=== PATIENT | male | born 1940 | race Caucasian/White ===

== ENCOUNTER 2020-06-04 13:04 | Emergency (ER) | payer OTHER, MEDICAID ==
[~2020-06-04] VITALS: Ht 165.1 cm; Wt 49.9 kg
[2020-06-04] MEDS ORDERED: SODIUM CHLORIDE 0.9% 1,000 ML IVB ONE (13:24)
[2020-06-04 14:24] LABS: Basophils # (auto) 0.1 10 ^3/uL (0-0.2); Basophils % (auto) 0.7 % (0.0-2.0); Eosinophils # (auto) 0 10 ^3/uL (0-0.8); Hematocrit 41.5 % (41.0-53.0); Hemoglobin 13.3 g/dL (13.5-17.5); Lymphocytes # (auto) 0.6 10 ^3/uL (0.4-5.4); Lymphocytes % (auto) 4.5 % (10.0-50.0); Mean Corpuscular Hemoglobin 31.7 pg (28.0-32.0); Mean Corpuscular Volume 99.1 fL (80.0-100.0); Monocytes # (auto) 1.2 10 ^3/uL (0-1.3); Monocytes % (auto) 8.9 % (0.0-12.0); Neutrophils # (auto) 11.4 10 ^3/uL (1.6-8.6); Neutrophils % (auto) 85.9 % (37.0-80.0); Platelet Count (auto) 181 10^3/uL (140-450); Red Blood Cells 4.19 10^6/uL (4.5-5.90); White Blood Cell 13.3 10^3/uL (4.4-10.8)
[2020-06-04 14:39] LABS: INR 1.35 (0.9-1.15); Partial Thromboplastin Time 31.2 sec (23.0-31.2)
[2020-06-04 14:44] LABS: Albumin 2.2 g/dL (3.4-5.0)
[2020-06-04 14:46] LABS: BUN/Creatinine Ratio 25.5
[2020-06-04 14:51] LABS: Bilirubin, Total 0.9 mg/dL (0.2-1.0); Total Protein 6.1 g/dL (6.4-8.2)
[2020-06-04 15:48] LABS: Urine Bacteria FEW /hpf (None Seen); Urine Blood Negative /uL (Negative); Urine Mucus FEW (None Seen); Urine Specific Gravity 1.019 (1.001-1.035); Urine WBC 53 /hpf (0 - 3)
[2020-06-04 16:00] VITALS: BP 117/44
== END 2020-06-04 16:41 | disposition home or self-care (01) ==
LOC: ER 13:04 → EDBD 13:04 → ER 16:41
DX: T67.5XXA Heat exhaustion, unspecified, initial encounter (principal); J01.90 Acute sinusitis, unspecified; I10 Essential (primary) hypertension; Z86.73 Personal history of transient ischemic attack (TIA), and cerebral infarction without residual deficits; Z95.0 Presence of cardiac pacemaker; X58.XXXA Exposure to other specified factors, initial encounter; Y93.89 Activity, other specified; Y92.89 Other specified places as the place of occurrence of the external cause; Y99.8 Other external cause status
CPT/HCPCS: 36415; 70450; 71045; 72125; 73562; 80053; 81001; 83735; 84484; 85025; 85610; 85730; 93005; 96360; 99285; J7030

== ENCOUNTER 2020-06-16 14:33 | Inpatient (IN) | payer OTHER, MEDICAID ==
[~2020-06-16] VITALS: Ht 175.3 cm; Wt 54.0 kg
[2020-06-16] MEDS ORDERED: SODIUM CHLORIDE 0.9% 500 ML IV ONE ×2 (14:37→16:07)
[2020-06-16 15:53] LABS: Basophils # (auto) 0 10 ^3/uL (0-0.2); Basophils % (auto) 0.2 % (0.0-2.0); Eosinophils # (auto) 0 10 ^3/uL (0-0.8); Hematocrit 46.6 % (41.0-53.0); Hemoglobin 15.4 g/dL (13.5-17.5); Lymphocytes # (auto) 1.2 10 ^3/uL (0.4-5.4); Lymphocytes % (auto) 6.1 % (10.0-50.0); Mean Corpuscular Hemoglobin 32.4 pg (28.0-32.0); Mean Corpuscular Hgb Conc. 33.1 g/dL (32.0-36.0); Mean Corpuscular Volume 97.8 fL (80.0-100.0); Monocytes % (auto) 10.5 % (0.0-12.0); Neutrophils # (auto) 15.9 10 ^3/uL (1.6-8.6); Neutrophils % (auto) 83.2 % (37.0-80.0); Platelet Count (auto) 251 10^3/uL (140-450); Red Blood Cells 4.76 10^6/uL (4.5-5.90); Red Cell Distribution Width 14.2 % (11.8-14.3)
[2020-06-16 16:04] LABS: Urine Bacteria MANY /hpf (None Seen); Urine Blood Negative /uL (Negative); Urine Mucus FEW (None Seen); Urine Specific Gravity 1.013 (1.001-1.035); Urine WBC 110 /hpf (0 - 3); Urine WBC Clumps PRESENT /hpf (None Seen)
[2020-06-16 16:09] LABS: Chloride 95 mmol/L (98-107); Potassium 4.6 mmol/L (3.5-5.1); Sodium 131 mmol/L (136-145)
[2020-06-16 16:15] LABS: Alanine Aminotransferase 66 U/L (16-61); Albumin 2.2 g/dL (3.4-5.0); Alkaline Phosphatase 95 U/L (45-117); Anion Gap 6 (5-15); Aspartate Aminotransferase 32 U/L (15-37); BUN/Creatinine Ratio 26.1; Blood Urea Nitrogen 18 mg/dL (7-18); Carbon Dioxide 30 mmol/L (21-32); GFR African American 143 mL/min; GFR Non-African American 118 mL/min; Glucose 125 mg/dL (74-106); Total Protein 6.9 g/dL (6.4-8.2)
[2020-06-16] MEDS ORDERED: cefTRIAXone 1GM/50ML D5W 50 ML IV ONE (16:15)
[2020-06-16] MEDS: SODIUM CHLORIDE 0.9% 1,000 ML IV SCH (16:41)
[2020-06-16] MEDS ORDERED: DEXTROSE (50%) 50ML SYRG IV PRN (16:45)
[2020-06-16] MEDS: ACCU-CHEK COMFORT CURVE STRIP VI SCH (17:00)
[2020-06-16 23:20] VITALS: BP 104/48
[2020-06-17] MEDS: ACCU-CHEK COMFORT CURVE STRIP VI SCH ×5 (00:02→21:36)
[2020-06-17 05:44] VITALS: BP 90/33
[2020-06-17] MEDS: SODIUM CHLORIDE 0.9% 1,000 ML IV SCH ×3 (06:45→21:45)
[2020-06-17 09:00] VITALS: BP 95/53
[2020-06-17] MEDS: cefTRIAXone 1GM/50ML D5W 50 ML IV SCH (09:35)
[2020-06-17] MEDS: ENOXAPARIN SOD 40 MG/0.4 ML SYRINGE SC SCH (09:36)
[2020-06-17 12:00] VITALS: BP 134/57
[2020-06-17] MEDS ORDERED: DEXTROSE (50%) 50ML SYRG IV PRN (14:00)
[2020-06-17 16:00] VITALS: BP 117/59
[2020-06-17] MEDS: InsuLIN REG 1unit/0.01ml Soln (100units/ml) SC SCH ×2 (16:43→21:40)
[2020-06-17 22:37] VITALS: BP 150/62
[2020-06-18 05:18] VITALS: BP 112/70
[2020-06-18 05:34] LABS: Basophils # (auto) 0 10 ^3/uL (0-0.2); Basophils % (auto) 0.1 % (0.0-2.0); Eosinophils # (auto) 0 10 ^3/uL (0-0.8); Eosinophils % (auto) 0.2 % (0.0-7.0); Hematocrit 39.2 % (41.0-53.0); Hemoglobin 13.1 g/dL (13.5-17.5); Lymphocytes # (auto) 1.1 10 ^3/uL (0.4-5.4); Lymphocytes % (auto) 11.2 % (10.0-50.0); Mean Corpuscular Hemoglobin 32.4 pg (28.0-32.0); Mean Corpuscular Hgb Conc. 33.4 g/dL (32.0-36.0); Mean Corpuscular Volume 97.1 fL (80.0-100.0); Monocytes # (auto) 1.4 10 ^3/uL (0-1.3); Monocytes % (auto) 15.3 % (0.0-12.0); Neutrophils # (auto) 6.9 10 ^3/uL (1.6-8.6); Neutrophils % (auto) 73.2 % (37.0-80.0); Platelet Count (auto) 195 10^3/uL (140-450); Red Blood Cells 4.04 10^6/uL (4.5-5.90); Red Cell Distribution Width 14.4 % (11.8-14.3); White Blood Cell 9.4 10^3/uL (4.4-10.8)
[2020-06-18 05:50] LABS: BUN/Creatinine Ratio 33.3; Potassium 4.1 mmol/L (3.5-5.1)
[2020-06-18] MEDS: InsuLIN REG 1unit/0.01ml Soln (100units/ml) SC SCH ×4 (06:31→22:12)
[2020-06-18] MEDS: ACCU-CHEK COMFORT CURVE STRIP VI SCH ×4 (06:31→21:52)
[2020-06-18 09:00] VITALS: BP 112/93
[2020-06-18] MEDS: SODIUM CHLORIDE 0.9% 1,000 ML IV SCH ×2 (09:38→18:31)
[2020-06-18] MEDS: cefTRIAXone 1GM/50ML D5W 50 ML IV SCH (09:38)
[2020-06-18] MEDS: ENOXAPARIN SOD 40 MG/0.4 ML SYRINGE SC SCH (09:38)
[2020-06-18 13:00] VITALS: BP 115/90
[2020-06-18] MEDS: ACETAMINOPHEN 500 MG TAB PO PRN ×2 (15:10→21:52)
[2020-06-18 16:55] VITALS: BP 120/69
[2020-06-18] MEDS: Glucerna Carbsteady SHAKE Vanilla 8oz PO SCH (17:56)
[2020-06-18 22:00] VITALS: BP 124/72
[2020-06-19] MEDS: SODIUM CHLORIDE 0.9% 1,000 ML IV SCH ×2 (04:30→14:41)
[2020-06-19 05:00] VITALS: BP 118/68
[2020-06-19 05:59] LABS: Basophils # (auto) 0 10 ^3/uL (0-0.2); Basophils % (auto) 0.3 % (0.0-2.0); Eosinophils # (auto) 0 10 ^3/uL (0-0.8); Eosinophils % (auto) 0.5 % (0.0-7.0); Hematocrit 39.9 % (41.0-53.0); Hemoglobin 13.2 g/dL (13.5-17.5); Lymphocytes # (auto) 1.1 10 ^3/uL (0.4-5.4); Lymphocytes % (auto) 12.1 % (10.0-50.0); Mean Corpuscular Hemoglobin 32.4 pg (28.0-32.0); Mean Corpuscular Hgb Conc. 33.1 g/dL (32.0-36.0); Mean Corpuscular Volume 97.9 fL (80.0-100.0); Monocytes # (auto) 1.2 10 ^3/uL (0-1.3); Monocytes % (auto) 13.4 % (0.0-12.0); Neutrophils # (auto) 6.5 10 ^3/uL (1.6-8.6); Neutrophils % (auto) 73.7 % (37.0-80.0); Nucleated Red Blood Cells % 0.1 %; Platelet Count (auto) 157 10^3/uL (140-450); Red Blood Cells 4.07 10^6/uL (4.5-5.90); Red Cell Distribution Width 14.4 % (11.8-14.3); White Blood Cell 8.9 10^3/uL (4.4-10.8)
[2020-06-19 06:25] LABS: BUN/Creatinine Ratio 36.6; Calcium 9.1 mg/dL (8.5-10.1)
[2020-06-19] MEDS: ACCU-CHEK COMFORT CURVE STRIP VI SCH ×3 (06:35→17:00)
[2020-06-19] MEDS: InsuLIN REG 1unit/0.01ml Soln (100units/ml) SC SCH ×3 (06:36→17:00)
[2020-06-19] MEDS: Glucerna Carbsteady SHAKE Vanilla 8oz PO SCH ×3 (07:32→18:06)
[2020-06-19 07:37] VITALS: BP 155/91
[2020-06-19 09:00] VITALS: BP 155/91
[2020-06-19] MEDS: cefTRIAXone 1GM/50ML D5W 50 ML IV SCH (10:13)
[2020-06-19] MEDS: ENOXAPARIN SOD 40 MG/0.4 ML SYRINGE SC SCH (10:13)
[2020-06-19 13:00] VITALS: BP 109/66
[2020-06-19 16:17] VITALS: BP 119/72
[2020-06-19 17:14] VITALS: BP 109/66
== END 2020-06-19 20:15 | DRG 872 ==
LOC: ER 14:33 → EAST 14:34 → CENTRAL 17:57 → ER 17:57 → CENTRAL 06-17 10:43
PROVIDERS: ADMIT Internal Medicine; ATTEND Internal Medicine
DX: A41.9 Sepsis, unspecified organism (principal); E87.1 Hypo-osmolality and hyponatremia; Z68.1 Body mass index [BMI] 19.9 or less, adult; N39.0 Urinary tract infection, site not specified; E11.9 Type 2 diabetes mellitus without complications; I25.10 Atherosclerotic heart disease of native coronary artery without angina pectoris; I10 Essential (primary) hypertension; R62.50 Unspecified lack of expected normal physiological development in childhood; R62.7 Adult failure to thrive; B96.1 Klebsiella pneumoniae [K. pneumoniae] as the cause of diseases classified elsewhere; E88.09 Other disorders of plasma-protein metabolism, not elsewhere classified; Z20.828 Contact with and (suspected) exposure to other viral communicable diseases; Z95.0 Presence of cardiac pacemaker; Z79.899 Other long term (current) drug therapy
CPT/HCPCS: 36415; 71045; 80048; 80053; 81001; 82962; 83036; 83605; 84484; 85025; 87040; 87086; 87088; 87186; 87426; 93005; 94762; G0378; J0696; J1815